=== PATIENT | female | born 1950 | race Caucasian/White ===

== ENCOUNTER → 2020-07-18 14:59 | Outpatient (CLI) | payer MEDICARE, SELFPAY ==
--- NOTE | ~2020-07-18 | MM_ITS ---
EXAMINATION: MM screening david BI w luciano HISTORY: Screening mammogram TECHNIQUE: Craniocaudal and mediolateral oblique 3-D tomosynthesis images were obtained and synthetic 2-D images were generated. CAD analysis was submitted and interpreted. COMPARISON: 05/25/2015 diagnostic right digital mammogram /09/2015, 07/27/2009 bilateral digital screening mammogram examinations BREAST PARENCHYMAL COMPOSITION: The breasts are heterogeneously dense, which may obscure small masses . FINDINGS: Occasional bilateral benign calcifications are noted. There is no evidence of suspicious ma ss, calcification, or architectural distortion to suggest malignancy in either breast. There has been no suspicious interval change. IMPRESSION: 1. No mammographic evidence of malignancy. 2. Recommend routine screening mammography in one year. BI-RADS Category 2: Benign finding(s). Reviewed, dictated and finalized at location A.
== END ==
PROVIDERS: PCP Family Medicine; Visit Provider Nurse Practitioner Family
DX: Z12.31 Encounter for screening mammogram for malignant neoplasm of breast (principal)
CPT/HCPCS: 77063; 77067

== ENCOUNTER 2020-09-01 07:24 | Outpatient (CLI) | payer MEDICARE, SELFPAY ==
[2020-09-01 12:18] LABS: Alanine Aminotransferase 34 U/L (4-35); Cholesterol 186 mg/dL (0-200); Creatine Kinase 72 U/L (30-135); HDL Direct 99 mg/dL; Triglycerides 70 mg/dL (<150)
[2020-09-01 12:31] LABS: LDL Cholesterol Direct 62 mg/dL
== END 2020-09-01 07:25 | disposition home or self-care (01) ==
PROVIDERS: PCP Family Medicine; Visit Provider Nurse Practitioner Family
DX: E78.5 Hyperlipidemia, unspecified (principal)
CPT/HCPCS: 36415; 80061; 82550; 84460

== ENCOUNTER 2021-07-24 07:09 | Outpatient (CLI) | payer MEDICARE, SELFPAY ==
[2021-07-24 07:43] LABS: Hematocrit 41.6 % (37.0-47.0); Hemoglobin 14.3 g/dL (12.0-15.0); Mean Corpuscular HGB Conc 34.4 g/dl (32-36); Mean Corpuscular Hemoglobin 30.8 pg (26-34); Mean Corpuscular Volume 89.5 fl (80-100); Mean Platelet Volume 9.3 fl (7.4-10.4); Platelet Count Result 243 k/mm3 (150-375); Red Blood Count 4.65 M/mm3 (4.2-5.4); Red Cell Distribution Width 12.8 % (11.5-14.5); White Blood Count 5.6 K/mm3 (4.5-10.0)
[2021-07-24 08:00] LABS: Alanine Aminotransferase 25 U/L (6-35); Albumin Level 4.5 g/dL (3.5-5.1); Alkaline Phosphatase 60 U/L (38-126); Anion Gap 3 mmol/L (8-16); Aspartate Amino Transferase 31 U/L (14-36); Bilirubin,Total 0.7 mg/dL (0.2-1.3); Blood Urea Nitrogen 13 mg/dL (7-17); Calcium 8.9 mg/dL (8.4-10.2); Carbon Dioxide 29 mmol/L (22-30); Chloride 105 mmol/L (98-107); Cholesterol 173 mg/dL (0-200); Estimated Glomerular Filt Rate 55; Glucose 94 mg/dL (65-110); HDL Direct 85 mg/dL; Potassium 3.8 mmol/L (3.4-5.0); Sodium 137 mmol/L (137-145); Triglycerides 60 mg/dL (<150)
[2021-07-24 08:10] LABS: LDL Cholesterol Direct 56 mg/dL
== END 2021-07-24 07:10 | disposition home or self-care (01) ==
PROVIDERS: PCP Family Medicine; Visit Provider Nurse Practitioner Family
DX: E78.5 Hyperlipidemia, unspecified (principal); Z13.29 Encounter for screening for other suspected endocrine disorder
CPT/HCPCS: 36415; 80053; 80061; 84443; 85027

== ENCOUNTER 2021-10-16 13:21 | Outpatient (CLI) | payer MEDICARE, SELFPAY ==
--- NOTE | ~2021-10-16 | MM_ITS ---
EXAMINATION: MM screening david BI w luciano HISTORY: Screening mammogram TECHNIQUE: Craniocaudal and mediolateral oblique 3-D tomosynthesis images were obtained and synthetic 2-D images were generated. CAD analysis was submitted and interpreted. COMPARISON: 07/18/2020, 06/13/2015 bilateral screening mammogram examinations BREAST PARENCHYMAL COMPOSITION: The breasts are heterogeneously dense, which may obscure small masses . FINDINGS: There is no evidence of suspicious mass, calcification, or architectural distortion to sugg est malignancy in either breast. There has been no suspicious interval change. IMPRESSION: 1. No mammographic evidence of malignancy. 2. Recommend routine screening mammography in one year. BI-RADS Category 1: Negative Reviewed, dictated and finalized at location A.
== END 2021-10-16 13:22 | disposition home or self-care (01) ==
LOC: ANHIMG 13:25
PROVIDERS: PCP Family Medicine; Visit Provider Nurse Practitioner Family
DX: Z12.31 Encounter for screening mammogram for malignant neoplasm of breast (principal)
CPT/HCPCS: 77063; 77067

== ENCOUNTER 2022-01-26 00:51 | Emergency (ER) | payer MEDICARE, SELFPAY ==
[2022-01-26] VITALS (7 sets, daily range): BP systolic 143–173; BP diastolic 90–106; PULSE 95–116; RESP 12–15; TEMP 37.6; O2SAT 98–99
--- NOTE | ~2022-01-26 | XR_ITS ---
EXAMINATION: XR chest 1V portable DATE: 01/26/2022 04:17 INDICATION: Cough. TECHNIQUE: A single frontal view of the chest was obtained. COMPARISON: Chest single view 12/05/2010 FINDINGS: There is mild atelectasis at right lung base. No pleural effusion or pneumothorax. The hear t size is normal. IMPRESSION: 1. Mild atelectasis at right lung base. Reviewed, dictated and finalized at location A. E OPERATOR
--- NOTE | 2022-01-26 00:55 | ECG_ITS ---
Measurements Intervals [place] Rate: 112 P: 65 AL: 142 QRS: 66 QRSD: 88 T: 65 QT: 324 QTc: 443 Interpretive Statements SINUS TACHYCARDIA CANNOT RULE OUT SEPTAL INFARCTION, AGE UNDETERMINED ABNORMAL ECG NO PREVIOUS ECG AVAILABLE FOR COMPARISON Electronically Signed On 01-26-2022 15:31:14 RN EMBEDDED by Elmer Do M.D.
[2022-01-26 01:18] LABS: Basophils Percent Auto 0.4 % (0.2-1.2); Eosinophils Percent Auto 0.6 % (0-4.4); Hemoglobin 14.2 g/dL (12.0-15.0); Immature Granulocyte Absolute 0.01 K/mm3 (0.00-0.031); Immature Granulocyte Percent A 0.2 % (0-0.5); Lymphocytes Absolute Auto 0.56 K/mm3 (0.9-3.2); Mean Corpuscular HGB Conc 33.8 g/dl (32-36); Mean Corpuscular Hemoglobin 30.2 pg (26-34); Mean Corpuscular Volume 89.4 fl (80-100); Monocytes Absolute Auto 0.7 K/mm3 (0.1-0.6); Monocytes Percent Auto 14.6 % (2.6-8.5); Neutrophils Absolute Auto 3.4 K/mm3 (1.3-6.7); Neutrophils Percent Auto 72.2 % (45.5-73.1); Platelet Count Result 208 k/mm3 (150-375); Red Cell Distribution Width 12.5 % (11.5-14.5); White Blood Count 4.7 K/mm3 (4.5-10.0)
[2022-01-26 01:29] LABS: Alanine Aminotransferase 36 U/L (6-35); Albumin Level 4.9 g/dL (3.5-5.1); Alkaline Phosphatase 78 U/L (38-126); Anion Gap 8 mmol/L (8-16); Aspartate Amino Transferase 42 U/L (14-36); Bilirubin,Total 0.4 mg/dL (0.2-1.3); Blood Urea Nitrogen 12 mg/dL (7-17); Calcium 8.7 mg/dL (8.4-10.2); Carbon Dioxide 26 mmol/L (22-30); Chloride 102 mmol/L (98-107); Estimated CRCL calculation 62 ml/min; Estimated Glomerular Filt Rate > 60; Glucose 118 mg/dL (65-110); Potassium 3.7 mmol/L (3.4-5.0); Sodium 136 mmol/L (137-145)
[2022-01-26 01:54] LABS: Influenza A QL RT-PCR Negative (Negative); Influenza B QL RT-PCR Negative (Negative); SARS-CoV-2 RNA PCR Positive
--- NOTE | 2022-01-26 04:06 | ED.GENADULT ---
HPI - General Adult General Chief complaint: Dizziness Stated complaint: intermittent dizziness with hypertension Time Seen by Provider: 01/26/22 03:44 History of Present Illness HPI narrative: Patient is a 71-year-old female who presents ER with elevated blood pressures. Reports has been running in the 150s and 160s over the last couple days. Is got her bit anxious. Reports has had a cough since 01/21/2022. Denies fevers or chills. Has some mild fatigue. No chest pain or chest pressure. No known sick. Found to be COVID-positive here. Patient denies any dizziness lightheadedness despite stating that in triage. Related Data Home Medications Medication Instructions Recorded Confirmed aspirin 81 mg tablet,delayed 81 mg PO DAILY 06/16/20 07/21/21 release (Adult Low Dose Aspirin) calcium citrate 1,000 mg tablet 1,000 mg PO DAILY 06/16/20 07/21/21 cholecalciferol (vitamin D3) 125 125 mcg PO DAILY 06/16/20 07/21/21 mcg (5,000 unit) capsule lysine 500 mg tablet 500 mg PO DAILY 06/16/20 07/21/21 magnesium 250 mg tablet 250 mg PO DAILY 06/16/20 07/21/21 potassium gluconate 595 mg (99 mg) 595 mg PO .qd 06/16/20 07/21/21 tablet,extended release vitamin B comp and C no.3 15 mg-10 1 cap PO DAILY 06/16/20 07/21/21 mg-50 mg-5 mg-300 mg capsule (B Complex Plus Vitamin C) glucosamine sulfate 500 mg tablet 500 mg PO DAILY 07/21/21 07/21/21 (Glucosamine) Allergies Allergy/AdvReac Type Severity Reaction Status Date / Time hydrocodone Allergy Intermediate Vomiting Verified 01/26/22 00:53 morphine Allergy Intermediate Vomiting Verified 01/26/22 00:53 ampicillin Allergy Unknown Unknown Verified 01/26/22 00:53 Sulfa (Sulfonamide Allergy Headache Verified 01/26/22 03:54 Antibiotics) Review of Systems Review of Systems: All systems reviewed & are unremarkable except as noted in HPI and below Constitutional: Constitutional: Denies chills, Reports fatigue and Denies fever(s) ENT: Denies nasal congestion and Denies sore throat Cardiovascular: Cardiovascular: Denies chest pain, Denies rapid heart rate and Denies radiating jaw, neck or arm pain Respiratory: Respiratory: Denies cough and Denies dyspnea Gastrointestinal: Gastrointestinal: Denies abdominal pain, Denies nausea and Denies vomiting Genitourinary: Genitourinary: Denies dysuria Musculoskeletal: Musculoskeletal: Reports myalgias PMFSH Past Medical History Medical History (Updated 01/26/22 @ 05:36 by Jeremy Joseph MD) BMI 26.0-26.9,adult Hyperlipidemia Surgical History Surgical History History of carpal tunnel release History of hysterectomy History of surgery on wrist Family History Family History Other Heart disease Ovarian cancer Social History Social History (Updated 07/21/21 @ 09:54 by Eilzabeth Ordoñez, JULI) Smoking status: Never smoker Tobacco type: cigarettes Alcohol intake: current Drinks per week: 1 Substance use: never Substance use type: does not use Exam Narrative: GENERAL: Well-appearing, well-nourished, and in no acute distress. HEAD: Normocephalic, atraumatic. EYES: PERRL and EOMI. CHEST: Clear to auscultation. No respiratory distress. HEART: Regular rate and rhythm. Normal peripheral pulses. ABDOMEN: Soft, nontender, nondistended. EXTREMITIES: Normal range of motion. No edema. SKIN: Warm, dry, no rash. NEURO: Alert and oriented x3. PSYCH: Normal mood and affect. Course Course Emergency Course: Patient resting comfortably. No distress. No hypoxia. Hydrated. Recommend follow-up with PCP. Outside the window for antiviral therapy for COVID. Vital Signs Vital signs: Vital Signs Temperature 99.6 F 01/26/22 00:56 Pulse Rate 116 H 01/26/22 00:56 Respiratory Rate 14 01/26/22 00:56 Blood Pressure 169/105 H 01/26/22 00:56 Pulse Oximetry 99 01/26/22 00:56 O
[2022-01-26] MEDS: SODIUM CHLORIDE 0.9% IV 1,000 ML 999 ML IV CONT (04:07)
== END 2022-01-26 05:46 | disposition home or self-care (01) ==
PROVIDERS: Emergency Provider Emergency Medicine; PCP Family Medicine
DX: U07.1 COVID-19 (principal); R03.0 Elevated blood-pressure reading, without diagnosis of hypertension; E78.5 Hyperlipidemia, unspecified; Z79.82 Long term (current) use of aspirin; Z90.710 Acquired absence of both cervix and uterus
CPT/HCPCS: 36415; 71045; 80053; 85025; 87636; 93005; 96360; 99284; J7030

== ENCOUNTER 2022-02-25 07:34 | Outpatient (CLI) | payer MEDICARE, SELFPAY ==
[2022-02-25 08:49] LABS: Anion Gap 6 mmol/L (8-16); Blood Urea Nitrogen 18 mg/dL (7-17); Carbon Dioxide 30 mmol/L (22-30); Chloride 106 mmol/L (98-107); Estimated Glomerular Filt Rate > 60; Glucose 94 mg/dL (65-110); Sodium 142 mmol/L (137-145)
== END 2022-02-25 07:35 | disposition home or self-care (01) ==
PROVIDERS: PCP Family Medicine; Visit Provider Nurse Practitioner Family
DX: E87.1 Hypo-osmolality and hyponatremia (principal)
CPT/HCPCS: 36415; 80048

== ENCOUNTER 2022-06-30 12:20 | Outpatient (CLI) | payer MEDICARE, SELFPAY ==
--- NOTE | 2022-06-30 12:58 | ECHO_ITS ---
Patient Info Name: Lena Mcdaniels Age: 72 years : 1950 Gender: Female Ht: 67 in Wt: 174 lbs BSA: 1.95 m2 HR: 89 bpm BP: 160 / 120 mmHg Heart Rhythm: Sinus Rhythm Technical Quality: Fair Exam Date: 06/30/2022 1:06 PM Exam Location: [facility] Patient Status: Outpatient Admit Date: 06/30/2022 Staff Ordering Physician: En Gill DO Globe Changer: Veronica Cano RDCS Attending Provider: Yajaira Gay Referring Physician: Jairo LEMUS; Exam Type: CA echo dop color flow Study Info Indications - abn EKG Complete two-dimensional, color flow and Doppler transthoracic echocardiogram is performed. Summary 1. Complete two-dimensional, color flow and Doppler transthoracic echocardiogram is performed. 2. Left ventricular chamber dimension is normal. 3. Left ventricular systolic function is normal, estimated at 60-65%. 4. There is mild concentric increased left ventricular wall thickness. 5. The left ventricular diastolic function is grade I diastolic dysfunction. 6. E/e' 14 is mildly elevated. 7. There is trace mitral valve regurgitation. Left Ventricle E/e' 14 is mildly elevated. Left ventricular chamber dimension is normal. Left ventricular systolic function is normal, estimated at 60-65%. There is mild concentric increased left ventricular wall thickness. The left ventricular diastolic function is grade I diastolic dysfunction. Right Ventricle Right ventricular systolic function is normal and with normal TAPSE 2.4 cm. Right ventricular chamber dimension is normal. Left Atria Left atrial chamber dimension is normal. Right Atria Right atrial chamber dimension is normal. Aortic Valve The aortic valve is trileaflet. There is no aortic valve stenosis. There is no aortic valve regurgitation. Pulmonic Valve There is no pulmonic regurgitation. Mitral Valve There is no mitral valve stenosis. There is trace mitral valve regurgitation. Tricuspid Valve There is no tricuspid valve regurgitation. Pericardium/Pleural There is no pericardial effusion. Inferior Vena Cava Normal inferior vena cava with >50% collapse upon inspiration consistent with normal right atrial pressure, 5 mmHg. Aorta The aortic root size at the sinus of Valsalva is normal. Tricuspid Valve Name Value Normal Estimated PAP/RSVP RA Pressure 5 mmHg <=5 Report Signatures YA
== END 2022-06-30 12:21 | disposition home or self-care (01) ==
LOC: ANHCARD 12:21
PROVIDERS: PCP Family Medicine; Visit Provider Nurse Practitioner Family
DX: I10 Essential (primary) hypertension (principal)
CPT/HCPCS: 93306; C8929

== ENCOUNTER 2023-04-25 09:50 | Emergency (ER) | payer MEDICARE, SELFPAY ==
--- NOTE | ~2023-04-25 | CT_ITS ---
CT of the Abdomen and Pelvis: Indication: Abdominal pain Technique: 2.5 mm axial scans were obtained through the abdomen and pelvis following intravenous adm inistration of 100 cc of Omnipaque 350. Dose reduction technique was used on this scan by utilizing a utomated exposure control and iterative reconstruction technique. The dose-length product (DLP) was 4 25.87 mGy-cm. Findings: Scans through the lung bases are unremarkable. The liver, spleen, pancreas, adrenals and right kidney are within normal limits. Tiny gallstone prese nt. There is moderate left hydroureteronephrosis, extending to the level of the mid to distal left ur eter. No evidence of aortic aneurysm. No lymphadenopathy. There is extensive wall thickening of the distal sigmoid colon and rectum, with extensive infiltratio n of pericolonic/perirectal fat. No abscess or free air evident. No sandra bowel obstruction evident. Images through the pelvis were performed. Urinary bladder unremarkable. No ascites. Impression: Extensive wall thickening of the distal sigmoid colon and rectum, with extensive infiltration/inflamm atory change throughout the pelvic pericolonic fat. Diagnostic considerations include infectious/infl ammatory colitis versus neoplasm. Correlate clinically and with symptomatology. Moderate left hydroureteronephrosis, extending to the mid to distal left ureter. There may be relativ e impingement or obstruction of the mid to distal ureter due to the pathologic process of the sigmoid colon, which is where the ureter appears to taper. Cholelithiasis. Reviewed, dictated and finalized at [facility]. Impression: Extensive wall thickening of the distal sigmoid colon and rectum, with extensiv e infiltration/inflammatory change throughout the pelvic pericolonic fat. Diagn ostic considerations include infectious/inflammatory colitis versus neoplasm. C orrelate clinically and with symptomatology. Moderate left hydroureteronephrosis, extending to the mid to distal left ureter . There may be relative impingement or obstruction of the mid to distal ureter due to the pathologic process of the sigmoid colon, which is where the ureter a ppears to taper. Cholelithiasis.
[2023-04-25 10:23] VITALS: BP 148/88; PULSE 91; RESP 18; TEMP 36.3; O2SAT 99
--- NOTE | 2023-04-25 12:16 | ED.ABDPAIN ---
HPI - Abdominal Pain General Chief Complaint: Abdominal Pain Stated Complaint: intestine pain Time Seen by Provider: 04/25/23 12:01 History of Present Illness HPI narrative: 73 year old female presenting with abdominal pain. Patient states that about a month ago she ate a handful macadamia nuts and after that she was unable a bowel movement for days. She is concerned that she has a blockage. States that she started taking Dulcolax and has had several small bowel movements but continues to feel constipated and has migrating abdominal pains especially in the lower quadrants. Reports decreased appetite but no nausea or vomiting. No dysuria or hematuria. No further complaints. Related Data Home Medications Medication Instructions Recorded Confirmed aspirin 81 mg tablet,delayed 81 mg PO DAILY 06/16/20 11/24/22 release (Adult Low Dose Aspirin) calcium citrate 1,000 mg tablet 1,000 mg PO DAILY 06/16/20 11/24/22 cholecalciferol (vitamin D3) 125 125 mcg PO DAILY 06/16/20 11/24/22 mcg (5,000 unit) capsule lysine 500 mg tablet 500 mg PO DAILY 06/16/20 11/24/22 magnesium 250 mg tablet 250 mg PO DAILY 06/16/20 11/24/22 potassium gluconate 595 mg (99 mg) 595 mg PO .qd 06/16/20 11/24/22 tablet,extended release vitamin B comp and C no.3 15 mg-10 1 cap PO DAILY 06/16/20 11/24/22 mg-50 mg-5 mg-300 mg capsule (B Complex Plus Vitamin C) omega 4-ink-uos-fish oil 1,000 mg 1 cap PO DAILY 08/30/22 11/24/22 (120 mg-180 mg) capsule (Fish Oil) Allergies Allergy/AdvReac Type Severity Reaction Status Date / Time hydrocodone Allergy Intermediate Vomiting Verified 04/25/23 15:32 morphine Allergy Intermediate Vomiting Verified 04/25/23 15:32 ampicillin Allergy Unknown Unknown Verified 04/25/23 15:32 Sulfa (Sulfonamide Allergy Headache Verified 04/25/23 15:32 Antibiotics) Review of Systems Review of Systems: All systems reviewed & are unremarkable except as noted in HPI and below PMFSH Past Medical History Medical History BMI 26.0-26.9,adult Hyperlipidemia Surgical History Surgical History History of carpal tunnel release History of hysterectomy History of surgery on wrist Family History Family History Father Acute myocardial infarction Tobacco abuse Mother Dementia Sibling Heart disease Sibling Cerebrovascular accident Heart disease Other Ovarian cancer Social History Social History Smoking status: Never smoker Tobacco type: cigarettes Second hand tobacco smoke exposure: Yes Alcohol intake: current Drinks per week: 1 Substance use: never Substance use type: does not use Lack of Transportation: No Lack of Food: Never True Current Housing: I Have Housing Concerned About Future Housing: No Difficulty Paying Gas/Electric Bills: No Difficulty Paying for Meds: No Currently Unemployed: No Education: Trade/Vocational Certificate Difficulty w/ Childcare or Family Care: No Living arrangements: alone Occupation/Education: retired 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 HEAD: Normocephalic, atraumatic. EYES: PERRLA and EOMI. ENT: Grossly unremarkable NECK: Supple. CHEST: Clear to auscultation. No respiratory distress. HEART: Regular rate and rhythm ABDOMEN: Soft, mild tenderness bilateral lower quadrants, no guarding or rebound EXTREMITIES: Normal range of motion. No edema. SKIN: Warm, dry, no rash. NEURO: Alert and oriented x3. PSYCH: Normal mood and affect. Course Vital Signs Vital signs: Vital Signs
[2023-04-25 13:00] VITALS: BP 160/93; PULSE 106; RESP 20; O2SAT 100
[2023-04-25 13:46] LABS: Basophils Percent Auto 0.5 % (0.2-1.2); Eosinophils Absolute Auto 0.1 K/mm3 (0-0.3); Eosinophils Percent Auto 0.6 % (0-4.4); Hematocrit 39.4 % (37.0-47.0); Immature Granulocyte Absolute 0.03 K/mm3 (0.00-0.031); Immature Granulocyte Percent A 0.3 % (0-0.5); Lymphocytes Absolute Auto 1.15 K/mm3 (0.9-3.2); Mean Corpuscular Hemoglobin 29.1 pg (26-34); Mean Corpuscular Volume 88.3 fl (80-100); Mean Platelet Volume 8.9 fl (7.4-10.4); Monocytes Absolute Auto 0.7 K/mm3 (0.1-0.6); Monocytes Percent Auto 7.4 % (2.6-8.5); Neutrophils Absolute Auto 6.9 K/mm3 (1.3-6.7); Neutrophils Percent Auto 78.2 % (45.5-73.1); Platelet Count Result 427 k/mm3 (150-375); Red Blood Count 4.46 M/mm3 (4.2-5.4); White Blood Count 8.8 K/mm3 (4.5-10.0)
[2023-04-25 13:48] LABS: Appearance Urine Clear (Clear); Bilirubin Urine Negative (Negative); Blood Urine Negative (Negative); Color Urine Yellow (Yellow); Glucose Urine UA Negative (Negative); Ketones Urine 1+ mg/dL (Negative); Leukocyte Esterase Ur Negative LEU/UL (Negative); Nitrate Urine Negative (Negative); Protein Urine Negative (Negative); Specific Grav Ur 1.009 (1.001-1.035); Urobilinogen Urine 0.2 mg/dL (<2.0)
[2023-04-25 13:50] LABS: Add Urine Microscopic? NO
[2023-04-25 13:55] LABS: Alanine Aminotransferase 62 U/L (6-35); Albumin Level 4.1 g/dL (3.5-5.1); Alkaline Phosphatase 119 U/L (38-126); Anion Gap 9 mmol/L (8-16); Aspartate Amino Transferase 66 U/L (14-36); Bilirubin,Total 0.6 mg/dL (0.2-1.3); Blood Urea Nitrogen 8 mg/dL (7-17); Calcium 9.7 mg/dL (8.4-10.2); Carbon Dioxide 28 mmol/L (22-30); Chloride 102 mmol/L (98-107); Estimated Glomerular Filt Rate > 60; Glucose 109 mg/dL (65-110); Lipase 48 U/L (23-300); Potassium 3.9 mmol/L (3.4-5.0); Sodium 139 mmol/L (137-145)
[2023-04-25 14:00] VITALS: BP 164/92; PULSE 92; RESP 16; O2SAT 100
[2023-04-25 15:00] VITALS: BP 157/98; PULSE 90; RESP 16; O2SAT 100
[2023-04-25 16:00] VITALS: BP 169/94; PULSE 94; RESP 16; O2SAT 100
== END 2023-04-25 16:45 | disposition home or self-care (01) ==
PROVIDERS: Emergency Provider Emergency Medicine; PCP Family Medicine
DX: K59.00 Constipation, unspecified (principal); R10.9 Unspecified abdominal pain; R93.3 Abnormal findings on diagnostic imaging of other parts of digestive tract; E78.5 Hyperlipidemia, unspecified; Z90.710 Acquired absence of both cervix and uterus; Z79.82 Long term (current) use of aspirin; K80.20 Calculus of gallbladder without cholecystitis without obstruction
CPT/HCPCS: 36415; 74177; 80053; 83690; 85025; 99284; Q9967

== ENCOUNTER 2023-05-11 06:17 | Day surgery (SDC) | payer MEDICARE, SELFPAY ==
[2023-04-28 08:28] VITALS: BMI 25.5
[2023-04-28 13:53] VITALS: BMI 25.5
[2023-05-11] MEDS: LACTATED RINGERS 1,000 ML 150 ML IV CONT (07:46)
[2023-05-11 07:47] VITALS: BP 113/76; PULSE 115; RESP 16; TEMP 36.5; O2SAT 100
--- NOTE | 2023-05-11 08:38 | PM.HPGS ---
History of Present Illness History of Present Illness Consent: Risks, benefits, and alternatives have been discussed and questions answered. Patient agrees to proceed with procedure. Chief complaint: Abnormal findings on diagnostic imaging of other Narrative: Lena Mcdaniels is a 73 year old female presents for colonoscopy. Patient reports having constipation with lower abdominal pain that began early March. Patient in on what after taking laxatives but because of persistent pain went to the emergency room. CT scan imaging raises the question of thickening of the sigmoid colon. For this reason patient referred for colonoscopy. She states her bowel habits remain somewhat irregular. She has begun to monitor diet started a gluten free diet on her own. Family history is noncontributory. She denies any bleeding. She has no fevers. Review of Systems Review of Systems: Review of systems noncontributory. [facility] Past Medical History Medical History (Updated 04/27/23 @ 10:03 by Porsha Fournier PA-C) Adult BMI 25.0-25.9 kg/sq m BMI 26.0-26.9,adult Hyperlipidemia Surgical History Surgical History History of carpal tunnel release History of hysterectomy History of surgery on wrist Family History Family History Father Acute myocardial infarction Tobacco abuse Mother Dementia Sibling Heart disease Sibling Cerebrovascular accident Heart disease Other Ovarian cancer Social History Social History Smoking status: Former smoker Tobacco type: cigarettes Second hand tobacco smoke exposure: Yes Alcohol intake: current Drinks per week: 1 Alcohol use details: occasional wine or beer Substance use: never Substance use type: does not use Lack of Transportation: No Lack of Food: Never True Current Housing: I Have Housing Concerned About Future Housing: No Difficulty Paying Gas/Electric Bills: No Difficulty Paying for Meds: No Currently Unemployed: No Education: Trade/Vocational Certificate Difficulty w/ Childcare or Family Care: No Living arrangements: alone Occupation/Education: retired 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 by the patient): Female Spiritual care concerns: No Meds Home Medications and Allergies Home Medications Medication Instructions Recorded Confirmed Type aspirin 81 mg tablet,delayed 81 mg PO DAILY 06/16/20 05/11/23 History release (Adult Low Dose Aspirin) calcium citrate 1,000 mg tablet 1,000 mg PO DAILY 06/16/20 05/11/23 History cholecalciferol (vitamin D3) 125 125 mcg PO DAILY 06/16/20 05/11/23 History mcg (5,000 unit) capsule magnesium 250 mg tablet 250 mg PO DAILY 06/16/20 05/11/23 History potassium gluconate 595 mg (99 mg) 595 mg PO .qd 06/16/20 05/11/23 History tablet,extended release vitamin B comp and C no.3 15 mg-10 1 cap PO DAILY 06/16/20 05/11/23 History mg-50 mg-5 mg-300 mg capsule (B Complex Plus Vitamin C) omega 9-axu-cnf-fish oil 1,000 mg 1 cap PO DAILY 08/30/22 05/11/23 History (120 mg-180 mg) capsule (Fish Oil) folic acid 400 mcg tablet 0.4 mg PO DAILY 04/28/23 05/11/23 History Allergies Allergy/AdvReac Type Severity Reaction Status Date / Time hydrocodone Allergy Intermediate Vomiting Verified 05/11/23 07:28 morphine Allergy Intermediate Vomiting Verified 05/11/23 07:28 ampicillin Allergy Unknown Unknown Verified 05/11/23 07:28 Sulfa (Sulfonamide Allergy Headache Verified 05/11/23 07:28 Antibiotics) Vital Signs Vital Signs - 24 hr 05/11/23 07:47 Temperature 97.7 F Pulse Rate 115 H Respiratory Rate 16 Blood Pressure 113/76 Pulse Oximetry 100 Oxygen Delivery Room Air Exam Narrative: Physical exam revea
--- NOTE | 2023-05-11 08:59 | WPDANESEPPF ---
Anes - Initial Pre Proc Eval Procedure: Operation Date: 05/11/23 09:00 Proposed Procedures p Diagnostic Colonoscopy - Abimael Healy MD Date/Time: 05/11/23 08:59 Surgeon: Abimael Healy MD Pre Op Diagnosis: Abnormal findings on diagnostic imaging of other Patient Data Age: 73 Gender: F Height: 1.7 m Weight: 71.8 kg Last Vital Signs Temp 36.5 C 05/11/23 07:47 Pulse 115 H 05/11/23 07:47 Resp 16 05/11/23 07:47 BP 113/76 05/11/23 07:47 Pulse Ox 100 05/11/23 07:47 O2 Del Method Room Air 05/11/23 07:47 Allergies Allergy/AdvReac Type Severity Reaction Status Date / Time hydrocodone Allergy Intermediate Vomiting Verified 05/11/23 07:28 morphine Allergy Intermediate Vomiting Verified 05/11/23 07:28 ampicillin Allergy Unknown Unknown Verified 05/11/23 07:28 Sulfa (Sulfonamide Allergy Headache Verified 05/11/23 07:28 Antibiotics) Home Medications Medication Instructions Recorded Confirmed Type aspirin 81 mg tablet,delayed 81 mg PO DAILY 06/16/20 05/11/23 History release (Adult Low Dose Aspirin) calcium citrate 1,000 mg tablet 1,000 mg PO DAILY 06/16/20 05/11/23 History cholecalciferol (vitamin D3) 125 125 mcg PO DAILY 06/16/20 05/11/23 History mcg (5,000 unit) capsule magnesium 250 mg tablet 250 mg PO DAILY 06/16/20 05/11/23 History potassium gluconate 595 mg (99 mg) 595 mg PO .qd 06/16/20 05/11/23 History tablet,extended release vitamin B comp and C no.3 15 mg-10 1 cap PO DAILY 06/16/20 05/11/23 History mg-50 mg-5 mg-300 mg capsule (B Complex Plus Vitamin C) omega 7-yrq-gbc-fish oil 1,000 mg 1 cap PO DAILY 08/30/22 05/11/23 History (120 mg-180 mg) capsule (Fish Oil) folic acid 400 mcg tablet 0.4 mg PO DAILY 04/28/23 05/11/23 History Patient hx anesthesia problems: none Family hx anesthesia problems: none Results Review: All pre-operative results and documents have been reviewed as part of the pre-operative evaluation. [facility] Past Medical History Medical History Adult BMI 25.0-25.9 kg/sq m BMI 26.0-26.9,adult Hyperlipidemia Surgical History Surgical History History of carpal tunnel release History of hysterectomy History of surgery on wrist Family History Family History Father Acute myocardial infarction Tobacco abuse Mother Dementia Sibling Heart disease Sibling Cerebrovascular accident Heart disease Other Ovarian cancer Social History Social History Smoking status: Former smoker Tobacco type: cigarettes Second hand tobacco smoke exposure: Yes Alcohol intake: current Drinks per week: 1 Alcohol use details: occasional wine or beer Substance use: never Substance use type: does not use Lack of Transportation: No Lack of Food: Never True Current Housing: I Have Housing Concerned About Future Housing: No Difficulty Paying Gas/Electric Bills: No Difficulty Paying for Meds: No Currently Unemployed: No Education: Trade/Vocational Certificate Difficulty w/ Childcare or Family Care: No Living arrangements: alone Occupation/Education: 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
[2023-05-11 09:19] VITALS: BP 142/92; PULSE 86; RESP 16; O2SAT 95
[2023-05-11 09:29] VITALS: BP 132/81; PULSE 76; RESP 14; O2SAT 97
[2023-05-11 09:39] VITALS: BP 139/82; PULSE 83; RESP 15; O2SAT 98
--- NOTE | 2023-05-11 10:38 | WPDANESPN ---
Anes - Prog Note Post-Op Date/Time: 05/11/23 10:38 Cardiovascular status: normal Respiratory status: normal Airway patency: baseline Mental status: baseline Post-Op hydration status: normal Vital Signs: Last Vital Signs Temp 36.5 C 05/11/23 07:47 Pulse 83 05/11/23 09:39 Resp 15 05/11/23 09:39 BP 139/82 05/11/23 09:39 Pulse Ox 98 05/11/23 09:39 O2 Del Method Room Air 05/11/23 09:39 Pain Score (VAS): 0 I/O: Intake & Output 05/10/23 05/11/23 05/11/23 23:59 07:59 15:59 Intake Total 800 Balance 800 Patient Feedback: Patient satisfied with anesthetic care.
== END 2023-05-11 09:59 | disposition home or self-care (01) ==
PROVIDERS: PCP Family Medicine; Visit Provider Internal Medicine Gastroenterology
PROC: 0DJD8ZZ Inspection of Lower Intestinal Tract, Via Natural or Artificial Opening Endoscopic (ICD-10-PCS; CPT 45378; principal; 2023-05-11 09:00)
DX: R10.32 Left lower quadrant pain (principal); R93.3 Abnormal findings on diagnostic imaging of other parts of digestive tract; K64.8 Other hemorrhoids
CPT/HCPCS: 45378

== ENCOUNTER 2023-05-11 10:15 | Outpatient (CLI) | payer MEDICARE, SELFPAY ==
--- NOTE | ~2023-05-11 | XR_ITS ---
EXAMINATION: XR_ENEMAB_CR DATE: 05/11/2023 11:28 INDICATION: Low abdominal pain. Constipation. Incomplete colonoscopy. TECHNIQUE: A fpga design engineer radiograph was obtained. A catheter was inserted into the patient's rectum. Contra st was infused by gravity. Fluoroscopic spot images and conventional radiographs were obtained. Fluor oscopy exposure time was 0.5 minutes. The total number of images was 23. COMPARISON: CT abdomen and pelvis 04/25/2023 FINDINGS: There is a long stricture of the sigmoid colon. The more proximal colon is distended. There was fluid in the proximal colon before the start of the exam resulting in poor contrast opacificatio n of the proximal colon. IMPRESSION: 1. Long stricture of the sigmoid colon with partial obstruction, likely chronic diverticulitis. Reviewed, dictated and finalized at location A.
== END 2023-05-11 10:16 | disposition home or self-care (01) ==
LOC: ANHIMG 10:16
PROVIDERS: PCP Family Medicine; Visit Provider Internal Medicine Gastroenterology
DX: R93.3 Abnormal findings on diagnostic imaging of other parts of digestive tract (principal)
CPT/HCPCS: 74270

== ENCOUNTER 2023-06-02 06:59 | Outpatient (CLI) | payer MEDICARE, SELFPAY ==
[2023-06-02 07:33] LABS: Alanine Aminotransferase 27 U/L (6-35); Albumin Level 4.4 g/dL (3.5-5.1); Alkaline Phosphatase 62 U/L (38-126); Anion Gap 4 mmol/L (4-12); Aspartate Amino Transferase 33 U/L (14-36); Bilirubin,Total 0.9 mg/dL (0.2-1.3); Blood Urea Nitrogen 10 mg/dL (7-17); Calcium 9.4 mg/dL (8.4-10.2); Carbon Dioxide 31 mmol/L (22-30); Chloride 103 mmol/L (98-107); Cholesterol 237 mg/dL (0-200); Estimated Glomerular Filt Rate > 60; Glucose 90 mg/dL (65-110); HDL Direct 77 mg/dL; Potassium 3.7 mmol/L (3.4-5.0); Sodium 138 mmol/L (137-145); Triglycerides 84 mg/dL (<150)
[2023-06-02 07:44] LABS: LDL Cholesterol Direct 126 mg/dL
== END 2023-06-02 07:00 | disposition home or self-care (01) ==
PROVIDERS: PCP Family Medicine; Visit Provider Internal Medicine Cardiovascular Disease
DX: E78.5 Hyperlipidemia, unspecified (principal)
CPT/HCPCS: 36415; 80053; 80061

== ENCOUNTER 2023-06-14 08:13 | Outpatient (CLI) | payer MEDICARE, SELFPAY ==
--- NOTE | ~2023-06-14 | CT_ITS ---
EXAMINATION: CT abdomen pelvis w con DATE: 06/14/2023 08:50 INDICATION: Stricture of sigmoid colon. Other intestinal obstruction, unspecified. TECHNIQUE: Computed tomography (CT) of the abdomen and pelvis was performed with 100 mL Omnipaque 350 intravenous contrast. Automated exposure control and iterative reconstruction technique were employe d. The dose-length product was 441.47 mGy-cm. COMPARISON: CT abdomen and pelvis 04/25/2023, enema 05/11/2023 FINDINGS: The visualized portions of the lung bases demonstrate mild atelectasis. No pleural effusion . The heart size is normal. No pericardial effusion. There are cysts in the liver measuring up to 4 m m. There is a gallstone in the gallbladder, which is normal in size. The spleen, pancreas, adrenal gl ands, and kidneys are normal. There are scattered diverticula in the colon. There is wall thickening of the rectosigmoid with interval improvement. There are fistulas involving the rectosigmoid and vagi na. There are no dilated loops of bowel. The appendix is normal. Aortic atherosclerosis is noted. The re are no pathologically enlarged lymph nodes. There is no free intraperitoneal fluid. There is sever e lower lumbar spondylosis. IMPRESSION: 1. Chronic diverticulitis with fistulas involving the rectosigmoid and vagina. Reviewed, dictated and finalized at location A.
[2023-06-14 08:41] LABS: Estimated Glomerular Filt Rate 54
== END 2023-06-14 08:14 ==
LOC: MICIMG 08:14
PROVIDERS: PCP Surgery; Visit Provider Surgery
DX: K56.699 Other intestinal obstruction unspecified as to partial versus complete obstruction (principal); K57.32 Diverticulitis of large intestine without perforation or abscess without bleeding; K63.2 Fistula of intestine; N82.8 Other female genital tract fistulae
CPT/HCPCS: 74177; Q9967

== ENCOUNTER 2023-10-20 10:54 | Outpatient (CLI) | payer MEDICARE, SELFPAY ==
[2023-10-20 11:44] LABS: Hematocrit 42.6 % (37.0-47.0); Hemoglobin 14.6 g/dL (12.0-15.0); Mean Corpuscular HGB Conc 34.3 g/dl (32-36); Mean Corpuscular Hemoglobin 31.3 pg (26-34); Mean Corpuscular Volume 91.2 fl (80-100); Mean Platelet Volume 9.3 fl (7.4-10.4); Platelet Count Result 252 k/mm3 (150-375); Red Blood Count 4.67 M/mm3 (4.2-5.4); Red Cell Distribution Width 13.5 % (11.5-14.5); White Blood Count 8.2 K/mm3 (4.5-10.0)
[2023-10-20 12:20] LABS: Vitamin D 25 Hydroxy 95.3 ng/mL
== END 2023-10-20 10:55 | disposition home or self-care (01) ==
LOC: ANHLAB 10:57
PROVIDERS: PCP Family Medicine; Visit Provider Nurse Practitioner Family
DX: E78.5 Hyperlipidemia, unspecified (principal); E55.9 Vitamin D deficiency, unspecified; I10 Essential (primary) hypertension; R79.89 Other specified abnormal findings of blood chemistry; Z68.26 Body mass index [BMI] 26.0-26.9, adult; Z13.29 Encounter for screening for other suspected endocrine disorder
CPT/HCPCS: 36415; 82306; 84443; 85027

== ENCOUNTER 2023-12-30 06:45 | Outpatient (CLI) | payer MEDICARE, SELFPAY ==
[2023-12-30 07:47] LABS: Alanine Aminotransferase 26 U/L (6-35); Albumin Level 4.6 g/dL (3.5-5.1); Alkaline Phosphatase 59 U/L (38-126); Anion Gap 7 mmol/L (4-12); Aspartate Amino Transferase 32 U/L (14-36); Bilirubin,Total 0.7 mg/dL (0.2-1.3); Blood Urea Nitrogen 13 mg/dL (7-17); Calcium 9.5 mg/dL (8.4-10.2); Carbon Dioxide 30 mmol/L (22-30); Chloride 102 mmol/L (98-107); Cholesterol 273 mg/dL (0-200); Estimated Glomerular Filt Rate > 60; Glucose 85 mg/dL (65-110); HDL Direct 104 mg/dL; Potassium 3.8 mmol/L (3.4-5.0); Sodium 139 mmol/L (137-145); Triglycerides 61 mg/dL (<150)
[2023-12-30 07:58] LABS: LDL Cholesterol Direct 119 mg/dL
== END 2023-12-30 06:46 | disposition home or self-care (01) ==
PROVIDERS: PCP Family Medicine; Visit Provider Internal Medicine Cardiovascular Disease
DX: E78.5 Hyperlipidemia, unspecified (principal)
CPT/HCPCS: 36415; 80053; 80061

== ENCOUNTER 2024-03-05 08:15 | Outpatient (CLI) | payer MEDICARE, SELFPAY ==
--- NOTE | ~2024-03-05 | MM_ITS ---
EXAMINATION: MM screening [facility] BI w luciano HISTORY: Screening TECHNIQUE: Craniocaudal and mediolateral oblique 3-D tomosynthesis images were obtained and synthetic 2-D images were generated. CAD analysis was submitted and interpreted. COMPARISON: Comparison to multiple prior studies sequentially, with oldest reviewed study dated 05/22. BREAST PARENCHYMAL COMPOSITION: Not dense: There are scattered areas of fibroglandular density. FINDINGS: There is no evidence of suspicious mass, calcification, or architectural distortion to sugg est malignancy in either breast. There has been no suspicious interval change. IMPRESSION: 1. No mammographic evidence of malignancy. 2. Recommend routine screening mammography in one year. BI-RADS Category 1: Negative Reviewed, dictated and finalized at location A. ITY CONTROL MANAGER
== END 2024-03-05 08:16 | disposition home or self-care (01) ==
LOC: ANHIMG 08:17
PROVIDERS: PCP Family Medicine; Visit Provider Nurse Practitioner Family
DX: Z12.31 Encounter for screening mammogram for malignant neoplasm of breast (principal)
CPT/HCPCS: 77063; 77067

== ENCOUNTER 2024-10-30 07:52 | Outpatient (CLI) | payer MEDICARE, SELFPAY ==
--- OUTSIDE RECORDS SUMMARY | 2024-10-30 08:05 | XMS_ITS | Clinical Summary ---
Author Organization [facility] Address [address] [place] [address] Care Team Providers Care Sales Expert Home Theater Name Role Phone Irving Salas MD Primary Care Provider [phone] Source Comments [facility],non-owned Affiliates and Associated Physician Practices is amultiple site organization consisting of ambulatory clinics and hospital sitesin [place], [place], [place] and [place]. This disclosure is being madepursuant to the Care Everywhere program and may not contain all information available regarding this patient. Last updated 17.[facility] Allergies Active Allergy Reactions Criticality Noted Date Comments Morphine Nausea and/or Vomiting Medium 12/20/2017 Hydrocodone-Acetaminophen Nausea and/or Vomiting Medium 12/20/2017 Medications * Be aware that medications may not be up to date on this document. Alwaysverify current medications with the patient. No known medications Active Problems Problem Noted Date Diagnosed Date Acute post-operative pain 12/21/2017 Type I or II open fracture of head of right radi us 12/20/2017 Social History Tobacco Use Types Packs/Day Years Used Date Smoking Tobacco: Never Smokeless Tobacco: Never Alcohol Use Standard Drinks/Week Comments Yes 1 (1 standard drink = 0.6 oz pur e alcohol) Comments No Sex and Gender Information Value Date Recorded Sex Assigned at Not on file Legal Sex Female 5:20 AM STOVE MOUNTER Gender Identity Not on file Sexual Orientation Not on file Last Filed Vital Signs Vital Sign Reading Time Taken Comments Blood Pressure 170/92 12/22/2017 11:32 AM STOVE MOUNTER Pulse 92 12/22/2017 11:32 AM STOVE MOUNTER Temperature 36.4 C (97.5 F) 12/22/2017 11:32 AM STOVE MOUNTER Respiratory Rate 18 12/22/2017 11:32 AM STOVE MOUNTER Oxygen Saturation 98% 12/22/2017 11:32 AM STOVE MOUNTER Inhaled Oxygen Concentration - - Weight 74.8 kg (165 lb) 04/11/2018 8:53 AM STOVE MOUNTER Height 170.2 cm (5' 7) 04/11/2018 8:53 AM STOVE MOUNTER Body Mass Index 25.84 04/11/2018 8:53 AM STOVE MOUNTER Plan of Treatment Health Maintenance Due Date Last Done Comments BONE DENSITY TESTING 1950 COLOGUARD (AGES 45-75) - COL ON CA SCREENING 1950 COLON MONITORING 1950 COLONOSCOPY - COLON CA SCREENING 1950 CT COLONOGRAPHY - COLON CA SCREENING 1950 Colorectal Cancer Screening 1950 FIT - COLON CA SCREENING 1950 FLEX SIG - COLON CA SCREENING 1950 LIPID TESTING 1950 MAMMOGRAM 1950 HEPATITIS C SCREENING 02/02/1968 DTAP/TDAP/TD VACCINES (1 - Tdap) 1969 PNEUMOCOCCAL VACCINE 50+ (1 of 1 - PCV) 02/07/2000 ZOSTER VACCINE (1 of 2) 02/07/2000 SCREENING FOR DIABETES 12/22/2020 8, 12/21/2017, 12/20/2017 DEPRESSION SCREENING 02/08/2024 COVID-19 VACCINE (1 - 2023-2 5 season) 2024 INFLUENZA VACCINE (#1) 2024 Respiratory Syncytial Virus (RSV) Vaccine Pt: or over 60 yrs (1 - 1-dose 75+ series) 2025 HEPATITIS B VACCINE Aged Out No longe r eligible based on patient's age to complete this topic HIB VACCINE Aged Out No longer eligi ble based on patient's age to complete this topic HPV VACCINE Aged Out No longer eligi ble based on patient's age to complete this topic MENINGOCOCCAL (Group B) VACCINE SHARED DECISION-MAKING Aged Out No longer eligible based on patient's age to complete this topic MENINGOCOCCAL GROUPS A/C/Y/W VACCINE Aged Out No longer eligible b ased on patient's age to complete this topic Medical Devices Implanted Type Area Community Relations Assistant Device Identifier Shelf Expiration Date Model / Serial / Lot Graft Bone Ntr Ac Cnxs Dbm 1ml Ptty Syr Implanted:Qty: 1 on 12/21/2017 by Julio Reyna MD at [facility] Right: [employer] 11/04/2018-3000-010 / / Screw Cortical [id number] Implanted:Qty: 1 on 12/21/2017 by Julio Reyna MD at [facility] Right: [employer] [id number] / / Peg Thread Multidir 2.5x20mm Implanted:Qty: 1 on 12/21/2017 by Julio Reyna MD at [facility] Right: [employer] [id number] / / Peg Thread Multidir 2.5x22mm Implanted:Qty: 2 on 12/21/2017 by Julio Reyna MD at [facility] Right: [employer] [id number] / / Plate 59.5x24.4mm 4 Hl Lopro Fx Ang Wire Implanted:Qty: 1 on 12/21/2017 by Julio Reyna MD at [facility] Right: [employer] [id number] / / Peg Fx 2.5mm 18mm Ft Ft Lck Screw Ti F3 Implanted:Qty: 1 on 12/21/2017 by Julio Reyna MD at [facility] Right: [employer] [id number] / / Peg Fx 2.5mm 22mm Ft Hand Lck Screw F3 Implanted:Qty: 1 on 12/21/2017 by Julio Reyna MD at [facility] Right: [employer] [id number] / / Peg Fx 2.5mm 24mm Ft Ft Lck Screw F3 Implanted:Qty: 2 on 12/21/2017 by Julio Reyna MD at [facility] Right: [employer] [id number] / / Screw 3.5mm 12mm Sergio Ti Nonster Dvr Implanted:Qty: 1 on 12/21/2017 by Julio Reyna MD at [facility] Right: [employer] [id number] / / Explanted Type Area Community Relations Assistant Device Identifier Shelf Expiration Date Model / Serial / Lot Screw 3.5mm 12mm Sergio Ti Nonster Dvr Explanted:Qty: 1 on 12/21/2017 at [facility] Right: [employer] [id number] / / Wire K 1.6mm Ss Fx Nonster Explanted:Qty: 2 on 12/21/2017 at [facility] Right: [employer] [id number] / / Screw 2.5mm 20mm 1.3mm Pg Slf-Tap Tip Sq Explanted:Qty: 1 on 12/21/2017 at [facility] Right: [employer] [id number] / / Screw 2.5mm 24mm 1.3mm Pg Slf-Tap Tip Sq Explanted:Qty: 1 on 12/21/2017 at [facility] Right: [employer] [id number] / / Procedures Procedure Name Priority Date/Time Associated Diagnosis Comments BASIC METABOLIC PANEL (CALCIUM TOTAL) AM Draw 12/22/2017 4:34 AM STOVE MOUNTER Type I or II open displaced fracture of head of right radius, initial encounter from Last 3 Months or Most Recently Relevant to Health Maintenance Results * (ABNORMAL) BASIC METABOLIC PANEL (CALCIUM TOTAL) (12/22/2017 4:34 AM STOVE MOUNTER) BUN 10 7 - 26 mg/dL 12/22/2017 4:59 AM [facility] Creatinine 0.7 0.6 - 1.2 mg/dL 12/22/2017 4:59 AM [facility] Sodium 140 136 - 145 mmol/L 12/22/2017 4:59 AM [facility] Potassium 3.4(L) 3.5 - 4.5 mmol/L 12/22/2017 4:59 AM [facility] Chloride 104 98 - 107 mmol/L 12/22/2017 4:59 AM [facility] CO2 27 22 - 29 mmol/L 12/22/2017 4:59 AM [facility] Glucose 95 70 - 115 mg/dL 12/22/2017 4:59 AM [facility] Calcium 8.9 8.4 - 10.2 mg/dL 12/22/2017 4:59 AM [facility] Anion Gap 12 8 - 18 12/22/2017 4:59 AM [facility] BUN/Creatinine Ratio 14 7 - 23 12/22/2017 4:59 AM [facility] Osmolality Calculated 289 270 - 300 mOsm/kg 12/22/2017 4:59 AM [facility] eGFR >60 >60 mL/min/1.7 3 m2 12/22/2017 4:59 AM [facility] Blood BLOOD SPECIMEN / Unknown Lab Venipuncture / Unknown 12/22/2017 4:34 AM [employer]OVE M[employer]TER 12/22/2017 4:34 AM STOVE MOUNTER Kirit Hodge Jr., MD LAB - CHEMISTRY ORDERA BLES Final Result [facility] [address] [phone] from Last 3 Months or Most Recently Relevant to Health Maintenance Insurance MEDICARE MEDICARE MEDICARE SUPPLEMENT PAYOR GENERIC PAYOR GENERIC Member Subscriber Plan / Payer (Ef fective 2017-Present) Name:Herman Taylor Relation to Subscriber:Self Name:Herman Taylor Payer ID:Not on file Group ID:Not on file Type:Worker's Comp [id number] Address: [place] [address] Advance Directives * Full Code (Latest Code Status on File) Date Activated Date Inactivated Comments 12/21/2017 3:32 PM 12/22/2017 2:00 PM * Full Code Date Activated Date Inactivated Comments 12/20/2017 2:28 PM 12/21/2017 3:32 PM Care Teams Sales Expert Home Theater Relationship Specialty Start Date End Date Irving Salas MD PCP - General 01/03/18
[2024-10-30 09:05] LABS: Alanine Aminotransferase 23 U/L (6-35); Albumin Level 4.5 g/dL (3.5-5.1); Alkaline Phosphatase 59 U/L (38-126); Anion Gap 8 mmol/L (4-12); Aspartate Amino Transferase 34 U/L (14-36); Bilirubin,Total 0.7 mg/dL (0.2-1.3); Blood Urea Nitrogen 15 mg/dL (7-17); Calcium 9.0 mg/dL (8.4-10.2); Carbon Dioxide 27 mmol/L (22-30); Chloride 101 mmol/L (98-107); Cholesterol 229 mg/dL (0-200); Estimated Glomerular Filt Rate 60; Glucose 95 mg/dL (65-110); HDL Direct 97 mg/dL; Potassium 3.8 mmol/L (3.4-5.0); Sodium 136 mmol/L (137-145); Total Protein 7.5 g/dL (6.3-8.2); Triglycerides 56 mg/dL (<150)
[2024-10-30 09:40] LABS: Thyroid Stimulating Hormone 2.300 uIU/mL (0.465-4.680)
== END 2024-10-30 07:53 | disposition home or self-care (01) ==
LOC: ANHLAB 07:53
PROVIDERS: PCP Family Medicine; Visit Provider Nurse Practitioner Family
DX: E78.5 Hyperlipidemia, unspecified (principal); E55.9 Vitamin D deficiency, unspecified
CPT/HCPCS: 36415; 80053; 80061; 82306; 84443